=== PATIENT | female | born 1965 | race African-American/Black ===

== ENCOUNTER 2019-08-11 06:04 | Emergency (ER) | payer SELFPAY ==
[2019-08-11 06:22] VITALS: BP 126/72
[2019-08-11] MEDS ORDERED: IBUPROFEN 600 MG TABLET PO ONE (06:55)
[2019-08-11] MEDS ORDERED: HYDROCODONE/ACETAMINOPHEN 5-325 MG (6 TAB/ER DISP) PO PRN (06:55)
[2019-08-11] MEDS ORDERED: PENICILLIN V POTASSIUM 500 MG TABLET PO ONE (06:55)
--- NOTE | 2019-08-11 12:17 | ER Document Report ---
Entered by SULY GONZALEZ SCRIBE 08/11/19 0656 Acting as scribe for:RANJIT GARCIA MD ED General - General Chief Complaint: Mouth Problem Stated Complaint: MOUTH/CHEEK SWELING Time Seen by Provider: 08/11/19 06:23 Mode of Arrival: Ambulatory Information source: Patient Notes: This 54 year old female patient presents to the ED today with complaints of right sided facial swelling that began x2 days ago. Patient reports that she has been having pain on the right side of her face, particularly in her mouth for x1 month. Patient states that it hurts to chew on the right upper side. Patient denies fevers. - Related Data Allergies/Adverse Reactions: No Known Allergies Allergy (Unverified 08/11/19 06:22) Past Medical History - General Information source: Patient - Social History Smoking Status: Never Smoker Cigarette use (# per day): No Frequency of alcohol use: Occasional Drug Abuse: None Occupation: [employer] Lives with: Family Family History: Reviewed & Not Pertinent Patient has suicidal ideation: No Patient has homicidal ideation: No Past Surgical History: Reports: None Review of Systems - Review of Systems Constitutional: No symptoms reported EENT: See HPI, Mouth pain, Dental problem, Other - right sided cheek swelling Cardiovascular: No symptoms reported Respiratory: No symptoms reported Gastrointestinal: No symptoms reported Genitourinary: No symptoms reported Female Genitourinary: No symptoms reported Musculoskeletal: No symptoms reported Skin: No symptoms reported Hematologic/Lymphatic: No symptoms reported Neurological/Psychological: No symptoms reported -: Yes All other systems reviewed and negative Physical Exam - Vital signs Vitals: Temp Pulse Resp BP Pulse Ox 98.0 F 86 16 126/72 H 100 08/11/19 06:21 08/11/19 06:21 08/11/19 06:21 08/11/19 06:21 08/11/19 06:21 Interpretation: Normal - General General appearance: Alert - HEENT Head: Normocephalic, Atraumatic Eyes: Normal Pupils: PERRL Mouth/Lips: Other - 2nd bicupsid is broken off at the gum, 1st and 2nd molar have fillings, gum above the 1st and 2nd molar is swollen and tender with no abscess noted. percussion to teeth is not particularly tender, swelling present over right cheek bone, no submandibular lymph nodes, there are several broken/decayed teeth on right upper side of mouth - Respiratory Respiratory status: No respiratory distress Chest status: Nontender Breath sounds: Normal Chest palpation: Normal - Cardiovascular Rhythm: Regular Heart sounds: Normal auscultation Murmur: No - Abdominal Inspection: Normal Distension: No distension Bowel sounds: Normal Tenderness: Nontender Organomegaly: No organomegaly - Back Back: Normal, Nontender - Extremities General upper extremity: Normal inspection General lower extremity: Normal inspection - Neurological Neuro grossly intact: Yes - Psychological Associated symptoms: Normal affect, Normal mood - Skin Skin Temperature: Warm Skin Moisture: Dry Skin Color: Normal Course - Vital Signs Vital signs: Temp Pulse Resp BP Pulse Ox 98.0 F 86 16 126/72 H 100 08/11/19 06:21 08/11/19 06:21 08/11/19 06:21 08/11/19 06:21 08/11/19 06:21 Discharge - Discharge Clinical Impression: Dental decay Condition: Stable Disposition: HOME, SELF-CARE Additional Instructions: Dental Infection or Abscess You have an infection, perhaps an abscess (pus formation) of the gum around one of your teeth, which is probably decayed. If there is an abscess, it may drain on its own or it may need to be opened or lanced. Severe swelling or drainage around a tooth usually means a deep dental abscess which usually requires evaluation and treatment by a dentist or oral surgeon. Antibiotics may be prescribed while awaiting dental treatment. If you develop high fever with chills, worsening pain, or increasing swelling in the area, see a dentist or oral surgeon immediately or return to the Emergency Department immediately. Take medication as prescribed. Take ibuprofen 600 mg every 8 hours. Take the pain medication as dispensed today if needed. Follow-up with a local dentist for management of your dental infection. RETURN TO THE EMERGENCY ROOM IF ANY NEW OR WORSENING SYMPTOMS. Prescriptions: Penicillin V Potassium [Penicillin Vk 500 mg Tablet] 500 mg PO QID #28 tablet Scribe Attestation: 08/11/19 06:58 I personally performed the services described in the documentation, reviewed and edited the documentation which was dictated to the scribe in my presence, and it accurately records my words and actions. I personally performed the services described in the documentation, reviewed and edited the documentation which was dictated to the scribe in my presence, and it accurately records my words and actions.
== END 2019-08-11 07:12 | disposition home or self-care (01) ==
LOC: ER 06:04
DX: K02.9 Dental caries, unspecified (principal); K08.89 Other specified disorders of teeth and supporting structures; R22.0 Localized swelling, mass and lump, head
CPT/HCPCS: 99283